=== PATIENT | male | born 1960 | race Caucasian/White ===

== ENCOUNTER 2018-01-23 19:23 | Emergency (ER) | payer MEDICAID ==
[~2018-01-23] VITALS: Ht 180.3 cm; Wt 105.0 kg
[~2018-01-23 19:23] MED LIST: BISA10SU65 PR; DOCU-131 PO; SERT25TA PO; SULF-169 PO; TAMS-11 PO
[2018-01-23] MEDS ORDERED: NICO-485 TD (19:42)
[2018-01-23] MEDS ORDERED: ARIP5TAB13 PO (19:42)
[2018-01-23 20:08] LABS: BASOPHILS # (AUTO) 0.05 x10^3/uL (0-0.1); BASOPHILS % (AUTO) 1 % (0-1); EOSINOPHILS # (AUTO) 0.15 x10^3/uL (0-0.4); EOSINOPHILS % (AUTO) 2 % (1-7); LYMPHOCYTES # (AUTO) 3.46 x10^3/uL (1-3.4); LYMPHOCYTES % (AUTO) 42 % (22-44); MD NO; MEAN CORPUSCULAR HEMOGLOBIN 30.2 pg (27.5-34.5); MEAN CORPUSCULAR HGB CONC 34.2 g/dL (33.2-36.2); MEAN CORPUSCULAR VOLUME 88.3 fL (81-97); MONOCYTES % (AUTO) 6 % (2-9); NEUTROPHILS # (AUTO) 4.05 x10^3/uL (1.8-6.8); NEUTROPHILS % (AUTO) 49 % (42-75); PLATELET COUNT 241 x10^3/uL (130-400); RED BLOOD COUNT 4.66 x10^6/uL (4.38-5.82); RED CELL DISTRIBUTION WIDTH 14.5 % (9.4-14.8)
[2018-01-23 20:12] LABS: ALANINE AMINOTRANSFERASE 40 U/L (12-78); ALBUMIN 3.6 g/dL (3.4-5.0); CALCIUM 8.8 mg/dL (8.5-10.1); CREATININE 1.07 mg/dL (0.7-1.3)
[2018-01-23 20:14] LABS: ALKALINE PHOSPHATASE 84 U/L (45-117); BILIRUBIN,TOTAL 0.4 mg/dL (0.2-1.0); TOTAL PROTEIN 7.7 g/dL (6.4-8.2)
[2018-01-23 20:23] LABS: ANION GAP 9 mmol/L (5-15); CHLORIDE 108 mmol/L (98-107)
[2018-01-23 20:29] LABS: ACETAMINOPHEN < 2 mcg/mL (10-30); SALICYLATE LEVEL < 1.7 mg/dL (2.8-20.0)
[2018-01-23 22:20] VITALS: BP 138/88
== END 2018-01-23 22:22 ==
LOC: ED 21:26
DX: F32.9 Major depressive disorder, single episode, unspecified (principal); R45.851 Suicidal ideations; Z88.0 Allergy status to penicillin; Z79.899 Other long term (current) drug therapy
CPT/HCPCS: 36415; 80053; 80307; 80329; 82375; 85025; 99285; G0480

== ENCOUNTER 2018-11-21 07:46 | Emergency (ER) | payer MEDICAID ==
[~2018-11-21] VITALS: Ht 180.3 cm; Wt 114.0 kg
[~2018-11-21 07:46] MED LIST changes: +ARIP5TAB13 PO; +NICO-485 TD
[2018-11-21 07:57] VITALS: BP 133/82
--- NOTE | 2018-11-21 08:33 | NUR ---
PT AMBULATORY TO ROOM 2 W/ C/O LBP HAPPENED LAST NOC WHEN PT SLIPPED AND FELL AND HURT LOWER BACK. PT DENIES LOC/HEAD INJURY. PT RESTING ON GURNEY. BOATENG.
[2018-11-21] MEDS ORDERED: METHOCARBAMOL 750 MG TABLET ONE (08:55)
[2018-11-21] MEDS ORDERED: KETOROLAC 30 MG/1 ML ONE (08:56)
[2018-11-21] MEDS ORDERED: METHOCARBAMOL 750 MG TABLET PO ONE (09:00)
[2018-11-21] MEDS ORDERED: KETOROLAC 30 MG/1 ML IM ONE (09:00)
--- NOTE | 2018-11-21 09:07 | NUR ---
PT TAKEN TO XR IN STABLE CONDITION.
== END 2018-11-21 09:55 | disposition home or self-care (01) ==
LOC: ED 09:48
DX: G89.11 Acute pain due to trauma (principal); M54.5 Low back pain; F17.210 Nicotine dependence, cigarettes, uncomplicated
CPT/HCPCS: 72110; 96372; 99283; J1885

== ENCOUNTER 2018-11-22 19:01 | Emergency (ER) | payer MEDICAID ==
[~2018-11-22] VITALS: Ht 180.3 cm; Wt 114.0 kg
[2018-11-22 19:36] LABS: BASOPHILS # (AUTO) 0.09 x10^3/uL (0-0.1); BASOPHILS % (AUTO) 1 % (0-1); EOSINOPHILS # (AUTO) 0.22 x10^3/uL (0-0.4); EOSINOPHILS % (AUTO) 3 % (1-7); LYMPHOCYTES # (AUTO) 2.98 x10^3/uL (1-3.4); LYMPHOCYTES % (AUTO) 41 % (22-44); MD NO; MEAN CORPUSCULAR HGB CONC 34.7 g/dL (33.2-36.2); MEAN CORPUSCULAR VOLUME 89.3 fL (81-97); MEAN PLATELET VOLUME 8.6 fL (7.4-10.4); MONOCYTES # (AUTO) 0.34 x10^3/uL (0.2-0.8); MONOCYTES % (AUTO) 5 % (2-9); NEUTROPHILS # (AUTO) 3.69 x10^3/uL (1.8-6.8); NEUTROPHILS % (AUTO) 50 % (42-75); PLATELET COUNT 216 x10^3/uL (130-400); RED BLOOD COUNT 4.86 x10^6/uL (4.38-5.82); RED CELL DISTRIBUTION WIDTH 14.6 % (9.4-14.8)
[2018-11-22 19:44] LABS: ALBUMIN 3.7 g/dL (3.4-5.0); ANION GAP 7 mmol/L (5-15); CALCIUM 7.9 mg/dL (8.5-10.1); CHLORIDE 112 mmol/L (98-107); CREATININE 1.11 mg/dL (0.7-1.3)
[2018-11-22] MEDS ORDERED: KETOROLAC 30 MG/1 ML ONE (19:44)
[2018-11-22] MEDS ORDERED: HYDROcodone/APAP 5/325 TABLET ONE (19:44)
[2018-11-22 20:00] VITALS: BP 112/63
[2018-11-22] MEDS ORDERED: KETOROLAC 30 MG/1 ML IM ONE (20:00)
[2018-11-22] MEDS ORDERED: HYDROcodone/APAP 5/325 TABLET PO ONE (20:00)
--- NOTE | 2018-11-22 20:15 | NUR ---
THIS IS A 58 YO MALE WHO PRESENTS TO THE ER C/O RIGHT LOWER BACK PAIN X "A FEW DAYS", RATING IT 8/10. PT IS VAGUE ABOUT SYMPTOMS, LENGTH OF TIME. PT STATES HE'S HAD IT FOR "YEARS". PT ALSO REPORTS ONE EPISODE OF NOTICING BRIGHT RED BOWL IN TOILET IT WAS FLUSHED YESTERDAY. PT DENIES N/V/D. PT AO X 4. PT MEDICATED ORDERED. PT ON CONT BP AND O2 MONITORS. CALL LIGHT WITHIN REACH. WILL CONT TO MONITOR PT.
[2018-11-22] MEDS ORDERED: HYDROmorphone 1 MG/ML, 1ML ONE (20:47)
[2018-11-22] MEDS ORDERED: HYDROmorphone 2 MG/ML, 1ML IM ONE (21:00)
--- NOTE | 2018-11-22 21:02 | NUR ---
PT UP TO RESTROOM. STEADY UPON AMBULATION, AMBULATED W/O DIFFICULTY. PT REPORTED NO CHANGE IN PAIN. CONT TO RATE PAIN 8/10. PT REMEDICATED ORDERED. PT ON CONT BP AND O2 MONITORS.
--- NOTE | 2018-11-22 21:20 | NUR ---
PT SLEEPING ON GURNEY. NAD NOTED. PT CURRENTLY DENIES PAIN, STATING "THIS IS THE MOST COMFORTABLE I'VE BEEN IN WEEKS". PT REQUESTED AND WAS PROVIDED WITH A [facility].
== END 2018-11-22 21:38 | disposition home or self-care (01) ==
LOC: ED 21:37
DX: S39.012A Strain of muscle, fascia and tendon of lower back, initial encounter (principal); S33.5XXA Sprain of ligaments of lumbar spine, initial encounter; M54.16 Radiculopathy, lumbar region; F32.9 Major depressive disorder, single episode, unspecified; F17.200 Nicotine dependence, unspecified, uncomplicated; Z90.49 Acquired absence of other specified parts of digestive tract; W18.30XA Fall on same level, unspecified, initial encounter; Y93.89 Activity, other specified; Y92.89 Other specified places as the place of occurrence of the external cause; Y99.8 Other external cause status
CPT/HCPCS: 36415; 80048; 82040; 85025; 96372; 99283; J1170; J1885

== ENCOUNTER 2018-11-29 19:33 | Emergency (ER) | payer MEDICAID ==
[~2018-11-29] VITALS: Ht 180.3 cm; Wt 113.9 kg
[2018-11-29 20:02] VITALS: BP 161/86
[2018-11-29] MEDS ORDERED: KETOROLAC 30 MG/1 ML IM ONE (21:00)
[2018-11-29] MEDS ORDERED: DIAZEPAM 5 MG TABLET PO ONE (21:00)
[2018-11-29] MEDS ORDERED: DIAZEPAM 5 MG TABLET ONE (21:11)
[2018-11-29] MEDS ORDERED: KETOROLAC 30 MG/1 ML ONE (21:11)
== END 2018-11-29 21:37 | disposition home or self-care (01) ==
LOC: ED 21:30
DX: S39.012A Strain of muscle, fascia and tendon of lower back, initial encounter (principal); F32.9 Major depressive disorder, single episode, unspecified; X58.XXXA Exposure to other specified factors, initial encounter; Y93.89 Activity, other specified; Y92.89 Other specified places as the place of occurrence of the external cause; Y99.8 Other external cause status
CPT/HCPCS: 96372; 99283; J1885

== ENCOUNTER 2019-05-04 01:05 | Emergency (ER) | payer MEDICAID ==
[~2019-05-04] VITALS: Ht 180.3 cm; Wt 107.0 kg
[2019-05-04 06:19] VITALS: BP 145/88
== END 2019-05-04 16:02 ==
LOC: ED 08:35
DX: F32.3 Major depressive disorder, single episode, severe with psychotic features (principal); F17.200 Nicotine dependence, unspecified, uncomplicated; Z90.49 Acquired absence of other specified parts of digestive tract
CPT/HCPCS: 36415; 80053; 80307; 85025; 99284

== ENCOUNTER 2021-03-21 02:18 | Emergency (ER) | payer MEDICAID ==
[~2021-03-21] VITALS: Ht 180.3 cm; Wt 99.7 kg
[~2021-03-21 02:18] MED LIST changes: +FLUO10CA13 PO; +GABA300C10 PO; +HYDR25CA PO
[2021-03-21 02:21] VITALS: BP 145/85
--- NOTE | 2021-03-21 02:38 | NUR ---
pt presents to the ed with pain in left shoulder. pt states [place] and injuried his shoulder. pt said his shoulder already hurt before the fall and now it hurts more. pt in gown, on the gurney, and placed on continuous monitoring.
--- NOTE | 2021-03-21 03:00 | NUR ---
pt resting on gurney, denies needs at this time.
--- NOTE | 2021-03-21 04:00 | NUR ---
pt resting on gurney, denies needs at this time.
[2021-03-21] MEDS ORDERED: IBUPROFEN 800 MG TABLET ONE (04:13)
[2021-03-21] MEDS ORDERED: IBUPROFEN 800 MG TABLET PO ONE (04:30)
--- NOTE | 2021-03-21 05:50 | NUR ---
Patient given discharge instructions and they have confirmed that they understand the instructions. Patient ambulatory with steady gait.
== END 2021-03-21 06:20 | disposition home or self-care (01) ==
LOC: ED 04:50
DX: G89.11 Acute pain due to trauma (principal); M25.512 Pain in left shoulder; F17.200 Nicotine dependence, unspecified, uncomplicated; W01.0XXA Fall on same level from slipping, tripping and stumbling without subsequent striking against object, initial encounter; Y93.01 Activity, walking, marching and hiking; Y92.828 Other wilderness area as the place of occurrence of the external cause; Y99.8 Other external cause status
CPT/HCPCS: 99283